=== PATIENT | female | born 1985 | race American Indian/Alaskan Native ===

== ENCOUNTER 2021-07-30 03:48 | Emergency (ER) | payer OTHER ==
[2021-07-30 03:53] VITALS: BP 137/88
--- NOTE | 2021-07-30 04:47 | XRay Report ---
XR chest routine 2V INDICATION / CLINICAL INFORMATION: sob. COMPARISON: None available. FINDINGS: SUPPORT DEVICES: None. HEART /PULMONARY VASCULATURE: No significant abnormality. LUNGS / PLEURA: No significant pulmonary or pleural abnormality. No pneumothorax. ADDITIONAL FINDINGS: No significant additional findings. IMPRESSION: 1. No acute findings. Signer Name: Warren Lockett MD Signed: 07/30/2021 4:42 AM Workstation Name: [id number]
--- NOTE | 2021-07-30 05:42 | Emergency Department Report ---
ED General Adult HPI - General Chief complaint: Chest Pain Stated complaint: CHEST PAIN Time Seen by Provider: 07/30/21 04:17 Source: patient Mode of arrival: Ambulatory Limitations: No Limitations - History of Present Illness Initial comments: Patient is a 35-year-old -English female with history of asthma bronchitis and anxiety, who presents for cough and chest pain with cough for the past 3 days. Patient denies fevers or chills there is no nausea no vomiting. As are exacerbated by deep inspiration and movement. Symptoms are relieved by nothing tried. Patient states symptoms are exacerbating anxiety. Patient denies SI or HI. - Related Data Previous Rx's Medication Instructions Recorded Last Taken Type Albuterol Mdi (or & Nicu Only) 2 puff IH QID PRN #8.5 gram 07/30/21 Unknown Rx [ProAir HFA Inhaler] predniSONE [Deltasone] 20 mg PO QDAY 5 Days #5 tab 07/30/21 Unknown Rx Allergies Allergy/AdvReac Type Severity Reaction Status Date / Time No Known Allergies Allergy Unverified 07/30/21 03:54 ED Review of Systems ROS: Stated complaint: CHEST PAIN Other details as noted in HPI Constitutional: denies: chills, fever Eyes: denies: eye pain, eye discharge, vision change ENT: denies: ear pain, throat pain, congestion Respiratory: cough, shortness of breath. denies: wheezing Cardiovascular: chest pain. denies: palpitations Endocrine: no symptoms reported Gastrointestinal: denies: abdominal pain, nausea, vomiting, diarrhea Genitourinary: denies: urgency, dysuria, discharge Musculoskeletal: denies: back pain, joint swelling, arthralgia Skin: denies: rash, lesions Neurological: denies: headache, weakness, paresthesias, vertigo Psychiatric: anxiety Hematological/Lymphatic: denies: easy bleeding, easy bruising ED Past Medical Hx - Past Medical History Previous Medical History?: No - Surgical History Past Surgical History?: No - Medications Home Medications: Home Medications Medication Instructions Recorded Confirmed Last Taken Type Albuterol Mdi (or & Nicu Only) 2 puff IH QID PRN #8.5 gram 07/30/21 Unknown Rx [ProAir HFA Inhaler] predniSONE [Deltasone] 20 mg PO QDAY 5 Days #5 tab 07/30/21 Unknown Rx ED Physical Exam - General Limitations: No Limitations General appearance: alert, in no apparent distress - Head Head exam: Present: atraumatic, normocephalic - Eye Eye exam: Present: normal appearance, PERRL, EOMI. Absent: conjunctival injection, nystagmus Pupils: Present: normal accommodation - ENT ENT exam: Present: normal exam, normal orophraynx, mucous membranes moist, TM's normal bilaterally, normal external ear exam - Neck Neck exam: Present: normal inspection, full ROM. Absent: tenderness, meningismu s, lymphadenopathy - Respiratory Respiratory exam: Present: normal lung sounds bilaterally. Absent: respiratory distress, wheezes, rales, rhonchi, stridor, chest wall tenderness - Cardiovascular Cardiovascular Exam: Present: regular rate, normal rhythm, normal heart sounds. Absent: systolic murmur, diastolic murmur, rubs, gallop - GI/Abdominal GI/Abdominal exam: Present: soft, normal bowel sounds. Absent: distended, tenderness, guarding, rebound, rigid, bruit, hernia - Rectal Rectal exam: Present: deferred - Extremities Exam Extremities exam: Present: normal inspection, full ROM, normal capillary refill. Absent: tenderness - Back Exam Back exam: Present: normal inspection, full ROM. Absent: CVA tenderness (R), CVA tenderness (L) - Neurological Exam Neurological exam: Present: alert, oriented X3, CN II-XII intact, normal gait - Expanded Neurological Exam Expanded Patient oriented to: Present: person, place, time Speech: Present: fluid speech Motor strength exam: RUE: 5, LUE: 5, RLE: 5, LLE: 5 Best Eye Response ([employer]): (4) open spontaneously Best Motor Response (Black): (6) obeys commands Best Verbal Response ([employer]): (5) oriented [employer] Total: 15 - Psychiatric Psychiatric exam: Present: normal affect, normal mood - Skin Skin exam: Present: warm, dry, intact, normal color ED Course Vital Signs 07/30/21 03:51 Temperature 98.0 F Pulse Rate 61 Respiratory 18 Rate Blood Pressure 137/88 O2 Sat by Pulse 99 Oximetry ED Medical Decision Making - EKG Data EKG shows normal: sinus rhythm, axis, intervals, QRS complexes, ST-T waves Rate: normal - EKG Data When compared to previous EKG there are: no significant change Interpretation: normal EKG (NSR no STEMI, interp by ed attending) - Radiology Data Radiology results: report reviewed, image reviewed XR chest routine 2V INDICATION / CLINICAL INFORMATION: sob. COMPARISON: None available. FINDINGS: SUPPORT DEVICES: None. HEART /PULMONARY VASCULATURE: No significant abnormality. LUNGS / PLEURA: No significant pulmonary or pleural abnormality. No pneumothorax. ADDITIONAL FINDINGS: No significant additional findings. IMPRESSION: 1. No acute findings. Signer Name: Warren Lockett MD Signed: 07/30/2021 4:42 AM Workstation Name: [id number] - Medical Decision Making Chest x-ray normal no infiltrates no opacities, EKG normal sinus rhythm no ST elevated CA interpreted by ED attending. Lung sounds are clear throughout there is no respiratory distress breathing is even and nonlabored. No chest wall ten derness on exam. Plan DC to home, refill albuterol inhaler. Follow-up with primary care doctor in 2 to 3 days. Return to emergency department should symptoms worsen. Patient verbalized agreement and understanding with discharge plan. Patient DC'd home in stable condition at this time. Critical care attestation.: If time is entered above; I have spent that time in minutes in the direct care of this critically ill patient, excluding procedure time. ED Disposition Clinical Impression: Bronchitis, Stress Disposition: 01 HOME / SELF CARE / HOMELESS Is pt being admited?: No Does the pt Need Aspirin: No Condition: Stable Instructions: Chronic Bronchitis (ED), Upper Respiratory Infection, Adult, [id number], Mindfulness-Based Stress Reduction Additional Instructions: Take medications as prescribed. Follow-up with your doctor in 2 to 3 days. Return to emergency department should symptoms worsen. Prescriptions: predniSONE [Deltasone] 20 mg PO QDAY 5 Days #5 tab Albuterol Mdi (or & Nicu Only) [ProAir HFA Inhaler] 2 puff IH QID PRN #8.5 gram PRN Reason: Shortness Of Breath Referrals: MC MACEDO MD [Staff Physician] - 3-5 Days Forms: Work/School Release Form(ED) Time of Disposition: 05:46
--- NOTE | 2021-07-30 12:59 | Electrocardiograph Report ---
[facility] Test Date: 2021-07-30 Test Time: 03:59:42 Pat Name: AYO GALLEGOS Department: Room: Gender: F Mental Health Program Specialist: : [id number] Requested By: ONEIDA HAWTHORNE Order Number: [id number] Reading MD: Alie Barraza Measurements Intervals [place] Rate: 59 P: 54 ID: [id number] QRS: 77 QRSD: 101 T: 40 QT: 435 QTc: 432 Interpretive Statements Sinus rhythm No previous ECG available for comparison Electronically Signed On 07-30-2021 12:59:38 EST by Alie Barraza
== END 2021-07-30 06:23 | disposition home or self-care (01) ==
LOC: ED 03:48
DX: J40 Bronchitis, not specified as acute or chronic (principal); F43.9 Reaction to severe stress, unspecified; Z79.899 Other long term (current) drug therapy
CPT/HCPCS: 71046; 93005; 99283

== ENCOUNTER 2022-02-16 07:42 | Emergency (ER) | payer SELFPAY ==
[2022-02-16 08:06] VITALS: BP 118/86
[2022-02-16] MEDS ORDERED: KETOROLAC 10 MG TAB PO ONE (09:15)
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
[2022-02-16] MEDS ORDERED: ONDANSETRON 4 MG ODT TAB PO ONE (12:13)
[2022-02-16] MEDS ORDERED: ACETAMINOPHEN 325 MG/10.15 ML ORAL LIQD UNIT DOSE PO ONE (14:06)
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
== END 2022-02-16 14:56 | disposition home or self-care (01) ==
LOC: ED 07:42
DX: S02.122A Fracture of orbital roof, left side, initial encounter for closed fracture (principal); M79.652 Pain in left thigh; Y04.8XXA Assault by other bodily force, initial encounter; Y93.89 Activity, other specified; Y92.89 Other specified places as the place of occurrence of the external cause; Y99.8 Other external cause status
CPT/HCPCS: 70486; 99283; J3490; Q0162